=== PATIENT | female | born 1945 | race Caucasian/White ===

== ENCOUNTER 2017-08-15 19:00 | Emergency (ER) | payer MEDICAID, MEDICARE ==
[2017-08-15 19:32] VITALS: TEMP 99.1
[2017-08-15 20:17] LABS: CALCIUM 9.4 mg/dL (8.4-10.2); GFR AFRICAN-AMERICAN 49; GFR NON-AFRICAN AMERICAN 40
[2017-08-15 20:18] LABS: BASO % 0.6 % (0.0-2.0); EOS # 0.1 K/uL (0.0-0.7); EOS % 1.7 % (0.0-4.0); HEMOGLOBIN 14.8 g/dL (12.0-16.0); LYMPH % 23.8 % (20.0-40.0); MEAN CORPUSCULAR HEMOGLOBIN 28.7 pg (27.0-31.0); MEAN CORPUSCULAR HGB CONC 33.3 g/dL (33.0-37.0); MEAN PLATELET VOLUME 9.9 fl (7.2-11.7); MONO # 0.7 K/uL (0.0-0.8); MONO % 8.6 % (0.0-10.0); NEUT # 5.5 K/uL (1.8-7.0); NEUT % 65.3 % (50.0-75.0); RBC 5.16 Mil/uL (3.80-5.20); RED CELL DISTRIBUTION WIDTH 13.9 % (11.5-14.5); WHITE BLOOD COUNT 8.4 K/uL (4.8-10.8)
--- NOTE | 2017-08-15 20:24 | ED PDOC ---
HPI: Chest Pain Time Seen by Provider: 08/15/17 19:39 Chief Complaint (Nursing): Palpitations Chief Complaint (Provider): Palpitations History Per: Patient History/Exam Limitations: no limitations Onset/Duration Of Symptoms: Hrs Current Symptoms Are (Timing): Still Present Additional Complaint(s): 72 y/o female with a history of hypertension, atrial fibrillation, and coronary artery disease presents to the ED complaining of palpitations since 6:00 PM this evening. Patient has an at home blood pressure reader that she used immediately after feeling palpitations. Upon taking her blood pressure her results were high and thinks her heart rate was elevated. She is compliant with her heart medication Cardizem 60 mg which she takes three times per day and took her last dose at 4:00 PM today prior to arrival. Patient denies any CP, differential breathing, leg swelling, syncope, and dizziness. PMD: Dr. Tereza Sandhu MD - Risk Factors TAD Risk Factors: Pos: Hypertension Past Medical History Vital Signs: Last Vital Signs Temp 99.1 F 08/15/17 19:28 Pulse 74 08/15/17 20:44 Resp 20 08/15/17 19:28 BP 136/83 08/15/17 20:44 Pulse Ox 98 08/15/17 20:42 - Medical History PMH: Anemia, Atrial Fibrillation, CAD, Gastritis, HTN, Hypercholesterolemia, Hypothyroidism (no longer on meds) Denies: Chronic Kidney Disease - Surgical History Surgical History: Cholecystectomy (1970) - Family History Family History: States: Unknown Family Hx - Immunization History Hx Tetanus Toxoid Vaccination: No Hx Influenza Vaccination: Yes (01/2017) Hx Pneumococcal Vaccination: No - Home Medications Home Medications: Ambulatory Orders Medication Instructions Recorded Atorvastatin [Lipitor] 20 mg PO DAILY 09/04/14 Enalapril Maleate [Vasotec] 20 mg PO DAILY 03/06/15 Omeprazole 40 mg PO DAILY 03/03/16 Ferrous Sulfate 325 mg PO DAILY 11/29/16 Apixaban [Eliquis] 2.5 mg PO BID 02/12/17 [place]-3S/Dha/Epa/Fish Oil [Fish 1 tab PO DAILY 02/12/17 Oil 1,200 mg Softgel] [id number] CD [Cardizem CD] 60 mg PO BID 02/12/17 - Allergies Allergies/Adverse Reactions: Allergies Allergy/AdvReac Type Severity Reaction Status Date / Time iodine Allergy RASH Verified 08/15/17 19:28 GUME Risk Score for UA/NSTEMI - GUME Risk Score Age > 64: NO 3 or more CAD Risk Factors: NO Known CAD (Stenosis greater than 50%): NO Aspirin use in past 7 days: NO Severe Angina: NO EKG ST changes greater than 0.5mm: NO Positive Cardiac Marker: NO GUME Score: 0 Risk %: 5% Review of Systems ROS Statement: Except As Marked, All Systems Reviewed And Found Negative Cardiovascular: Positive for: Palpitations, Other (high blood pressure). Negative for: Chest Pain Respiratory: Negative for: Other (differential breathing) Musculoskeletal: Positive for: Other Neurological: Negative for: Dizziness, Other (syncope) Physical Exam - Reviewed Nursing Documentation Reviewed: Yes Vital Signs Reviewed: Yes - Physical Exam Appears: Positive for: Non-toxic, No Acute Distress Head Exam: Positive for: ATRAUMATIC, NORMOCEPHALIC Skin: Positive for: Normal Color, Warm, Dry Eye Exam: Positive for: EOMI, Normal appearance, PERRL Neck: Positive for: Normal, Painless ROM, Supple Cardiovascular/Chest: Positive for: Irregularly Irregular Respiratory: Positive for: CNT, Normal Breath Sounds Gastrointestinal/Abdominal: Positive for: Normal Exam, Soft. Negative for: Tenderness Back: Positive for: Normal Inspection. Negative for: L CVA Tenderness, R CVA Tenderness, Vertebral Tenderness Extremity: Positive for: Normal ROM, Pedal Edema. Negative for: Deformity, Swelling (leg) Neurologic/Psych: Positive for: Alert, Oriented (x3). Negative for: Motor/ Sensory Deficits - Laboratory Results Result Diagrams: 08/15/17 20:05 08/15/17 20:05 - ECG ECG Rhythm: Positive for: Normal QRS, Atrial Fibrillation (with rapid RVR), ST/ T Changes (non-specific) Rate: 101 O2 Sat by Pulse Oximetry: 98 (RA) Pulse Ox Interpretation: Normal - Progress Re-evaluation Time: 22:14 Condition: Re-examined, Improved Medical Decision Making Medical Decision Making: Time: 19:20 Initial Impression: Palpitation and high blood pressure Differential Diagnosis: Atrial RVR and uncontrolled hypertension Initial Plan: * EKG * B-Type Natriuretic Peptide Test * BMP * Thyroid Stimulating Hormone Test * Troponin Test * Cardizem 10 mg IVP * Cardizem 60 mg PO Disposition - Clinical Impression Clinical Impression: Palpitations, Atrial fibrillation with controlled ventricular response, Atrial fibrillation with rapid ventricular response - Patient ED Disposition Is Patient to be Admitted: No Doctor Will See Patient In The: Office Counseled Patient/Family Regarding: Studies Performed, Diagnosis, Need For Followup - Disposition Referrals: Tereza Sandhu MD [Staff Provider] - Disposition: Routine/Home Disposition Time: 22:15 Condition: GOOD Additional Instructions: Take your medications as instructed. Return for worsening. Follow up with your PCP in 2-3 days. Forms: [email or web address] (Italian)
[2017-08-15 20:26] LABS: MEAN CELL VOLUME 86.1 fl (81.0-99.0)
[2017-08-15 20:30] LABS: B-TYPE NATRIURETIC PEPTIDE 225 pg/ml (0-900)
[2017-08-15 20:59] LABS: BLOOD UREA NITROGEN 28 mg/dl (7-17)
[2017-08-15 22:25] VITALS: BP 137/70; PULSE 86; RESP 12; O2SAT 97
--- NOTE | 2017-08-17 11:53 | CARD ---
APPROVED REPORT EKG Measurement Heart [id number] <Conclusion> Atrial fibrillation with rapid ventricular response ST & T wave abnormality, consider inferior ischemia Abnormal ECG
== END 2017-08-15 22:30 | disposition home or self-care (01) ==
LOC: H.ER 19:00
DX: R00.2 Palpitations (principal); I48.91 Unspecified atrial fibrillation; E03.9 Hypothyroidism, unspecified; E78.00 Pure hypercholesterolemia, unspecified; I10 Essential (primary) hypertension; I25.10 Atherosclerotic heart disease of native coronary artery without angina pectoris; Z79.01 Long term (current) use of anticoagulants